=== PATIENT | female | born 1965 | race Caucasian/White ===

== ENCOUNTER 2017-02-09 06:42 | Inpatient (IN) | payer BC ==
[2017-01-24 14:56] VITALS: BMI 37.0
--- NOTE | 2017-01-24 15:25 | PAT Medication Instructions ---
Service Date Jan 24, 2017. Current Home Medication List Amitriptyline Hcl (Elavil), 50 MG PO QPM Ascorbic Acid (Vitamin C), 1,000 MG PO QAM Atorvastatin (Lipitor), 40 MG PO QPM Cyanocobalamin (Vitamin B12 500MCG), 2,500 MCG PO QAM Fexofenadine Hcl (Laly Allergy), 1 TAB PO QAM Flaxseed (Linseed) (Flaxseed Oil), 2,000 MG PO QAM Fluticasone Propionate (Nasal) (Flonase Allergy Relief), 2 SPRAYS GUILLAUME BID Losartan Potassium (Cozaar), 50 MG PO QAM Multivitamin (Multivitamin), 1 TAB PO QAM Ranitidine HCl (Ranitidine [address]), 150 MG PO BID Sennosides-Docusate Sodium (Stool Softener), 2 TAB PO QAM Tramadol (Ultram), 50 MG PO Q4H PRN for Pain [Clearalax], 1 DOSE PO QAM Medication Instructions For Your Scheduled Surgery - Hold the following medications 2 weeks prior to surgery: Flaxseed (Linseed) (Flaxseed Oil), 2,000 MG PO QAM - Hold the following medications the morning of surgery: Sennosides-Docusate Sodium (Stool Softener), 2 TAB PO QAM Multivitamin (Multivitamin), 1 TAB PO QAM Ranitidine HCl (Ranitidine [address]), 150 MG PO BID Losartan Potassium (Cozaar), 50 MG PO QAM Fexofenadine Hcl (Laly Allergy), 1 TAB PO QAM Cyanocobalamin (Vitamin B12 500MCG), 2,500 MCG PO QAM Ascorbic Acid (Vitamin C), 1,000 MG PO QAM [Clearalax], 1 DOSE PO QAM - Take the following medications the morning of surgery with a sip of water: Fluticasone Propionate (Nasal) (Flonase Allergy Relief), 2 SPRAYS GUILLAUME BID Tramadol (Ultram), 50 MG PO Q4H PRN for Pain (okay to take up to 4 hours prior to surgery if needed) - Take the following medications as scheduled the night before surgery: Ranitidine HCl (Ranitidine [address]), 150 MG PO BID Fluticasone Propionate (Nasal) (Flonase Allergy Relief), 2 SPRAYS GUILLAUME BID Atorvastatin (Lipitor), 40 MG PO QPM Amitriptyline Hcl (Elavil), 50 MG PO QPM Tramadol (Ultram), 50 MG PO Q4H PRN for Pain If you have any questions please call us at [phone] (Chetna Agarwal PA-C) or [phone] or [phone]
[2017-01-24 16:08] LABS: URINE APPEARANCE CLEAR (CLEAR); URINE BILIRUBIN NEG (NEG); URINE COLOR YELLOW; URINE NITRITE NEG (NEG); URINE SPECIFIC GRAVITY 1.007 (1.000-1.030); UROBILINOGEN NEG (NEG)
[2017-01-24 16:08] LABS: BASO % 0.4 %; BASO ABS # 0.03 K/uL (0-0.2); COMPLETE YES; EOS % 3.9 %; HEMATOCRIT 39.4 % (37-47); IG% 0.2 %; LYMPH % 28.5 %; LYMPH ABS # 2.42 K/uL (1.2-3.4); MEAN CELL VOLUME 90.4 fL (80-100); MEAN CORPUSCULAR HEMOGLOBIN 30.5 pg (25-34); MEAN CORPUSCULAR HGB CONC 33.8 g/dl (32-36); MEAN PLATELET VOLUME 9.7 fL (7.4-10.4); MONO % 10.3 %; NEUT % 56.7 %; PLATELET COUNT 360 K/uL (130-400); RED BLOOD COUNT 4.36 M/uL (4.2-5.4); WHITE BLOOD COUNT 8.48 K/uL (4.8-10.8)
[2017-01-24 16:11] LABS: MANUAL MICROSCOPIC REQUIRED? NO; REVIEW REQ? NO
--- NOTE | 2017-01-24 16:12 | DIAGNOSTIC IMAGING REPORT ---
CHEST 2 VIEWS ROUTINE CLINICAL HISTORY: PAT preoperative evaluation COMPARISON STUDY: No previous studies for comparison. FINDINGS: The bones soft tissues and hemidiaphragms are normal. The cardiomediastinal silhouette is normal. The lungs are clear. The pulmonary vasculature is normal. IMPRESSION: Negative chest. Electronically signed by: Juaquin Zepeda M.D. 01/24/2017 4:10 PM Dictated Date/Time: 01/24/2017 4:10 PM
[2017-01-24 16:16] LABS: PROTHROMBIN TIME (PATIENT) 10.7 SECONDS (9.0-12.0)
[2017-01-24 16:40] LABS: BUN/CREATININE RATIO 13.2 (10-20); CALCIUM 9.7 mg/dl (8.5-10.1); CREATININE 0.95 mg/dl (0.60-1.20); POTASSIUM 4.3 mmol/L (3.5-5.1)
[2017-01-25 07:31] LABS: ESTIMATED AVERAGE GLUCOSE 117 mg/dl; HA1C FLAG Normal (Normal)
--- NOTE | 2017-02-08 15:06 | HISTORY & PHYSICAL EXAMINATION ---
DATE OF ADMISSION: 02/09/2017 CHIEF COMPLAINT: Right knee pain. HISTORY OF PRESENT ILLNESS: The patient is a 51-year-old female with a known arthritic changes about her medial compartment and patellofemoral compartment noted on MRI and arthroscopy. Despite fairly normal looking x-rays, she continues to have a significant amount of pain and disability with activities of daily living. She has had conservative care including corticosteroid and viscosupplementation injections. She continues to have ongoing pain and disability and now desires to proceed with right total knee arthroplasty. PAST MEDICAL HISTORY: Chronic back pain, fibromyalgia, irritable bowel syndrome, hyperlipidemia, sleep apnea, esophageal reflux, hypertension. PAST SURGICAL HISTORY: D\T\C, right knee arthroscopy x2, tubal ligation. MEDICATIONS: Lipitor 40 mg daily, Cozaar 50 mg daily, Flonase 2 sprays each nostril daily, Zantac 150 mg 2 times daily, Elavil 25 mg at bedtime, Laly 180 mg daily, calcium 600 mg daily, multivitamin daily, vitamin C 1000 mg daily. ALLERGIES: No known drug allergies. SOCIAL HISTORY AND REVIEW OF SYSTEMS: Noncontributory. PHYSICAL EXAMINATION: GENERAL: Well-nourished, well-developed female who appears her stated age. HEENT: Normocephalic, atraumatic, extraocular movements intact, oropharynx pink and moist. NECK: Supple without adenopathy. LUNGS: Clear to auscultation bilaterally. HEART: Regular rate and rhythm. ABDOMEN: Soft, nontender, nondistended, obese. EXTREMITIES: The upper extremity within normal limits. The right knee is neutrally aligned. She has mild crepitus with range of motion. Her range of motion is from 0-125 degrees. X-RAYS: X-rays were reviewed. She has mild degenerative changes about the medial compartment on plain film, although there has been advanced changes noted on arthroscopy about the medial and patellofemoral compartments. ASSESSMENT: Right knee degenerative joint disease. PLAN: Risks versus benefits were discussed. Consent was obtained. The patient's primary care physician is Odette Mooney PA-C at [facility]. We will proceed with right total knee arthroplasty upon preoperative workup and medical clearance.
[~2017-02-09] VITALS: Ht 167.6 cm; Wt 104.0 kg
[2017-02-09] VITALS (9 sets, daily range): BP systolic 106–133; BP diastolic 72–83; PULSE 75–98; TEMP 36.5–36.7; O2SAT 96–100; Ht 167.6 cm; Wt 104.0 kg
[~2017-02-09 06:42] MED LIST: ACETAMINOPHEN 500 MG TAB PO SCH; AMT50 PO; ASCA500 PO; ATOR-24 PO; BUPIVACAINE 0.25% 30 ML VIAL ONE; BUPIVACAINE 0.5 % 5 MG/1 ML PF 10ML VIAL ONE; CEFAZOLIN 2000 MG/60 ML D5W 60 ML IV SCH; CYAN500T13 PO; CeleBREX 200 MG CAP PO SCH; DEXAMETHASONE 4 MG TAB PO SCH; FAMOTIDINE 20 MG TAB PO SCH; FEXO1TAB49 PO; FLAX100024 PO; FLUT0.15 NAE; GABAPENTIN 300 MG CAP PO SCH; LACTATED RINGER'S 1000ML 1,000 ML IV SCH; LACTATED RINGER'S 1000ML 500 ML IV ONE; LACTATED RINGER'S 1000ML IV SCH; LOSA50TA6 PO; MULT-506 PO; RANI1TAB77 PO; ROPIVACAINE 5MG/ML 30 ML 150 MG, BUPIVACAINE/EPINEPHR 0.5% MPF 30 ML, KETOROLAC TROMETH... INFIL SCH; SENNTAB23 PO; TRAM-10 PO; [UNRECOGNIZED DRUG - OTHER] PO
[2017-02-09] MEDS ORDERED: FENTANYL CITRATE INJ 50 MCG/1 ML 2 ML VIAL IV PRN (07:00)
[2017-02-09] MEDS ORDERED: ONDANSETRON INJ 2 MG/ML 2 ML VIAL IV PRN ×2 (07:00→11:00)
[2017-02-09] MEDS ORDERED: LABETALOL HCL IV 5 MG/ML 20ML IV PRN (07:00)
[2017-02-09] MEDS ORDERED: EpHEDrine SULFATE INJ 50 MG/ML AMP IV PRN (07:00)
[2017-02-09] MEDS ORDERED: ATROPINE SULFATE 0.1 MG/ML 5ML SYR IV PRN (07:00)
--- NOTE | 2017-02-09 07:55 | History & Physical Bridge Note ---
H&P Re-Evaluation Bridge Note: I have examined the patient, reviewed the History & Physical and in the interval since the performance of the History & Physical I have noted the following changes of clinical significance: No changes noted
[2017-02-09] MEDS ORDERED: MIDAZOLAM HCL 1 MG/ML 2ML VIAL ONE ×3 (07:58→09:31)
[2017-02-09] MEDS ORDERED: PROPOFOL IV EMULSION 10 MG/ML 20 ML VIAL IV ONE (07:58)
[2017-02-09] MEDS ORDERED: ONDANSETRON INJ 2 MG/ML 2 ML VIAL ONE (07:58)
[2017-02-09] MEDS ORDERED: LIDOCAINE HCL 2% 2 ML VIAL (20MG/ML) ONE (07:58)
[2017-02-09] MEDS ORDERED: DEXAMETHASONE SOD INJ 4 MG/ML VIAL ONE (07:58)
[2017-02-09] MEDS ORDERED: FENTANYL CITRATE INJ 50 MCG/1 ML 2 ML VIAL ONE (07:59)
[2017-02-09] MEDS ORDERED: BACITRACIN 50000 UNIT VIAL ONE (08:35)
[2017-02-09] MEDS ORDERED: ORTHO JOINT ANESTHETIC ONE (08:35)
[2017-02-09] MEDS ORDERED: POVIDONE-IODINE OP SOLN 30 ML BTL ONE (08:35)
[2017-02-09] MEDS: TRANEXAMIC ACID INJ 1,000 MG in SODIUM CHLORIDE 0.9% 100ML 100 ML IV SCH ×2 (09:01→12:39)
--- NOTE | 2017-02-09 10:21 | [facility] Post Operative Brief Note ---
Immediate Operative Summary Operative Date Feb 09, 2017. Pre-Operative Diagnosis Right Knee Degenerative Joint Disease Post-Operative Diagnosis Right Knee Degenerative Joint Disease Procedure(s) Performed Right Total Knee Arthroplasty, Cemented Surgeon Dr. Abel Store Associate Surgeon(s) Rip Tompkins PA-C Estimated Blood Loss 20 mL Findings OA Specimens A: Right Knee Bone and Tissue Disposition Recovery Room / PACU
--- NOTE | 2017-02-09 10:43 | OPERATIVE REPORT ---
DATE OF OPERATION: 02/09/2017 PREOPERATIVE DIAGNOSIS: Osteoarthritis, right knee. POSTOPERATIVE DIAGNOSIS: Osteoarthritis, right knee. PROCEDURE: Right total knee arthroplasty. SURGEON: Dr. Abel. BARTENDERS: Rip Tompkins PA-C. ANESTHESIA: Spinal. COMPLICATIONS: None. OPERATION AND FINDINGS: Following induction of spinal anesthesia, the patient's right leg was prepped and draped in the usual sterile manner. Limb was exsanguinated with an Esmarch bandage and tourniquet was inflated to 350 mmHg. A longitudinal incision was made anteriorly. Subcutaneous tissue was sharply dissected. Electrocautery was used for hemostasis. Prepatellar bursa was incised and median parapatellar incision was performed. Patella was everted and the knee was flexed. Fat pad was removed to aid in visualization and the anterior and posterior cruciate ligaments were removed. The medial face of the tibia was cleared of soft tissue first with a Bovie and a Benavides elevator. This tissue was retracted posteriorly using a blunt Hohmann. A Dickey retractor was used to expose the synovium above on the anterior aspect of the femur and this was removed down to bone. The PSI guide was placed on the distal femur and two pins were placed anteriorly and kept in position and two additional pins were placed distally and removed. The distal femoral cutting block was placed in position and the distal femoral cut was used in the +0 setting. Next, the cutting block was removed and the 3 block was placed in the distal end of the femur. Care was taken to ensure appropriate external rotation and feeler gauge was used to ensure no notching would occur. The femoral block was centered on the distal femur and in the medial and lateral direction and was fixed using two bone screws. The gold pins were then removed. The oscillating saw was used to create the bone cuts and the distal femoral cutting block was removed and the reciprocating saw was used to further trim the femoral cuts as well as a deep in the area for the trochlear groove. Next, posterior condyle remnants were removed. Following this, a meniscal clamp and knife were utilized to remove the anterior portion of both medial and lateral meniscus. The proximal tibia PSI guide was placed into position and the proximal tibial cutting guide was screwed into position. The extra medullary alignment guide was utilized to ensure appropriate alignment. The proximal tibia was cut and the proximal tibial cutting block was removed and this bone fragment was removed. The appropriate guide was used to perform the notch cut on the distal femur and a lamina owner consulting engineer and a cochlear knife were utilized to finish both medial and lateral meniscectomies to remove any remnants of the posterior or anterior cruciate ligaments. Following this, the distal femoral component was impacted into position and blunt Christopher was used to sublux the tibia anteriorly. The proximal tibia was sized and a 3 tibial tray was chosen as the size to be used. This was put into position and appropriate external rotation and a double check with extramedullary alignment guide was performed. The canal for the tibial stem was prepared first with a 17 mm drill and then the punch and a mallet and the trial tibial poly was placed. A 16 was chosen the size to be used. It was brought to extension and the patella was prepared with the patellar reamer. A 33 component was chosen the size to be used. The trial component was placed and knee was taken through a full range of motion and there was found to be no lateral subluxation of the tibia. No lateral release was required. The trials were all removed. The final components were obtained and assembled. Cement was mixed. The knee was thoroughly irrigated and the ortho mix was injected about the knee joint. The final components were cemented into position. After thoroughly suctioning and drying the bone ends, all excess cement was removed. The knee was held in extension while the cement hardened. The wound was irrigated and closed over a Hemovac drain. #1 Vicryl was used to close the extensor mechanism. Subcutaneous tissues closed using 0 Dexon. Skin was closed with logan. Sterile dressing of Adaptic, 4 x 4's, sterile Webril, and Konrad was applied. The patient tolerated the procedure well, recovery room stable. Due to the complex nature of the procedure, the entire surgery was performed with the operational assistance of Rip Tompkins PA-C. The greenhouse assistant, under direct supervision, was involved in the actual performance of all aspects of the surgical procedure including hemostasis, tissue retraction and incision, instrument management, patient positioning, and wound closure. I attest to the content of the Intraoperative Record and any orders documented therein. Any exceptio ns are noted below.
[2017-02-09] MEDS ORDERED: ZOLPIDEM TARTRATE 5 MG TAB PO PRN (11:00)
[2017-02-09] MEDS ORDERED: METOCLOPRAMIDE HCL INJ 5 MG/ML 2 ML VIAL IV PRN (11:00)
[2017-02-09] MEDS ORDERED: MoRPHine SULFATE 2 MG/ML CARP IV PRN (11:00)
[2017-02-09] MEDS ORDERED: MAGNESIUM HYDROXIDE SUSP 30 ML UDC PO PRN (11:00)
[2017-02-09] MEDS ORDERED: ALUMINUM/MAGNESIUM/SIMETH (MAALOX MAX) 30 ML UDC PO PRN (11:00)
--- NOTE | 2017-02-09 11:21 | DIAGNOSTIC IMAGING REPORT ---
TWO VIEWS RIGHT KNEE CLINICAL HISTORY: Postoperative examination. FINDINGS: AP and crosstable lateral portable views of the right knee are obtained. A right knee arthroplasty is in near anatomic alignment. There has been undersurface remodeling of the patella. No acute fracture is seen. There are expected postoperative changes around the knee including skin clips, a surgical drain, soft tissue edema, and subcutaneous gas. IMPRESSION: Expected postoperative changes status post right knee arthroplasty. No acute fracture is seen. Electronically signed by: Danet Martínez M.D. 02/09/2017 11:19 AM Dictated Date/Time: 02/09/2017 11:19 AM
--- NOTE | 2017-02-09 11:24 | Anesthesiology Progress Note ---
Anesthesia Post Op Note Date & Time Feb 09, 2017 at 11:23 Vital Signs Pain Intensity: 0 Vital Signs Past 12 Hours Date Time Temp Pulse Resp B/P Pulse Ox O2 Delivery O2 Flow Rate FiO2 02/09/17 11:15 115/73 02/09/17 11:14 88 14 02/09/17 11:14 89 14 100 02/09/17 11:10 121/77 02/09/17 11:09 92 19 02/09/17 11:09 92 19 99 02/09/17 11:08 98 17 02/09/17 11:08 98 17 100 02/09/17 11:05 103/78 02/09/17 11:03 94 16 100 02/09/17 11:03 94 16 02/09/17 11:00 118/74 02/09/17 10:58 90 13 100 02/09/17 10:58 90 13 02/09/17 10:55 112/72 02/09/17 10:53 95 12 02/09/17 10:53 95 12 100 02/09/17 10:50 107/63 02/09/17 10:48 95 15 104/63 96 02/09/17 10:48 96 15 02/09/17 10:48 36.6 98 16 104/63 97 Nasal Cannula 2 02/09/17 07:13 36.6 90 20 133/83 99 Room Air Notes Mental Status: alert / awake / arousable, participated in evaluation Pt Amnestic to Procedure: Yes Nausea / Vomiting: adequately controlled Pain: adequately controlled Airway Patency, RR, SpO2: stable & adequate BP & HR: stable & adequate Hydration State: stable & adequate Neuraxial Anesthesia: was administered, sensory block is resolving Anesthetic Complications: no major complications apparent
[2017-02-09] MEDS ORDERED: MoRPHine SULFATE 4 MG/ML 1 ML CARP\\VIAL IV PRN (11:45)
[2017-02-09] MEDS ORDERED: MoRPHine SULFATE 10 MG/ML CARP/VIAL IV PRN (11:45)
[2017-02-09] MEDS: FERROUS GLUCONATE 324 MG TAB PO SCH ×2 (12:30→18:58)
[2017-02-09] MEDS: D5W AND 1/2NSS + 20MEQ KCL 1,000 ML IV SCH ×2 (13:08→22:44)
[2017-02-09] MEDS: ACETAMINOPHEN 500 MG TAB PO SCH ×2 (13:08→22:44)
[2017-02-09] MEDS: KETOROLAC TROMETHAMINE 30 MG/ML VIAL IV. SCH ×2 (13:09→21:13)
[2017-02-09] MEDS: CEFAZOLIN IV 2,000 MG in DEXTROSE 5% 50ML 50 ML IV SCH ×2 (15:49→23:50)
[2017-02-09] MEDS: OXYCODONE HCL IR 5 MG TAB (IMMEDIATE RELEASE) PO PRN ×2 (15:50→21:12)
[2017-02-09] MEDS: FLUTICASONE PROPIONATE NA SPR 16 GM BTL NAE SCH (21:12)
[2017-02-09] MEDS: DOCUSATE SODIUM 100 MG CAP PO SCH (21:13)
[2017-02-09] MEDS: AMITRIPTYLINE HCL 50 MG TAB PO SCH (21:14)
[2017-02-09] MEDS: ASPIRIN 81 MG ECTAB PO SCH (21:14)
[2017-02-09] MEDS: ATORVASTATIN 40 MG TAB PO SCH (21:14)
[2017-02-09] MEDS: OXYCODONE HCL 10 MG TABCR (OXYCONTIN) PO SCH (21:19)
[2017-02-10] MEDS: KETOROLAC TROMETHAMINE 30 MG/ML VIAL IV. SCH ×2 (01:40→06:58)
[2017-02-10] MEDS: ACETAMINOPHEN 500 MG TAB PO SCH ×3 (05:46→21:34)
[2017-02-10 06:39] LABS: HEMATOCRIT 34.1 % (37-47); MEAN CELL VOLUME 91.9 fL (80-100); MEAN CORPUSCULAR HEMOGLOBIN 29.4 pg (25-34); MEAN PLATELET VOLUME 9.2 fL (7.4-10.4); PLATELET COUNT 314 K/uL (130-400); RED BLOOD COUNT 3.71 M/uL (4.2-5.4); WHITE BLOOD COUNT 19.32 K/uL (4.8-10.8)
[2017-02-10 06:49] VITALS: BP 101/64; PULSE 69; TEMP 36.4; O2SAT 99
[2017-02-10 07:12] LABS: BUN/CREATININE RATIO 16.5 (10-20); CALCIUM 8.5 mg/dl (8.5-10.1); CREATININE 1.1 mg/dl (0.60-1.20); POTASSIUM 4.5 mmol/L (3.5-5.1)
[2017-02-10] MEDS ORDERED: DEXAMETHASONE INJ 10 MG in SYRINGE 0 ML IV SCH (07:30)
--- NOTE | 2017-02-10 07:41 | Orthopedic Progress Note ---
Orthopedic Progress Note Date of Service Feb 10, 2017. Subjective Post OP Day: 1 Reports: feeling well Objective N/V intact, dressing C/D/I (Hemovac in place), toes mobile Date Time Temp Pulse Resp B/P Pulse Ox O2 Delivery O2 Flow Rate FiO2 02/10/17 07:05 Room Air 02/10/17 06:49 36.4 69 16 101/64 99 Room Air 02/09/17 23:50 CPAP 02/09/17 23:10 36.5 75 16 106/73 96 CPAP 02/09/17 19:23 36.5 85 18 115/76 100 Room Air 02/09/17 15:26 36.7 87 18 120/77 98 Room Air 02/09/17 14:21 83 16 107/72 100 Nasal Cannula 2.0 02/09/17 14:15 Room Air 02/09/17 13:15 36.7 98 16 117/78 100 2.0 02/09/17 12:45 86 16 118/82 96 2.0 02/09/17 12:16 98 Nasal Cannula 2.0 02/09/17 12:15 98 Nasal Cannula 2.0 02/09/17 12:13 36.7 95 17 123/81 98 Nasal Cannula 2.0 02/09/17 12:02 90 14 02/09/17 12:02 90 14 99 02/09/17 12:00 88 16 111/76 99 Nasal Cannula 2 02/09/17 12:00 111/76 02/09/17 11:57 93 16 99 02/09/17 11:57 92 16 02/09/17 11:52 87 13 02/09/17 11:52 83 13 100 02/09/17 11:47 89 16 02/09/17 11:47 88 16 99 02/09/17 11:45 110/72 02/09/17 11:45 95 17 110/72 100 Nasal Cannula 2 02/09/17 11:42 88 13 100 02/09/17 11:42 89 13 02/09/17 11:40 106/73 02/09/17 11:37 88 17 02/09/17 11:37 87 17 100 02/09/17 11:36 90 16 02/09/17 11:36 92 16 100 02/09/17 11:35 116/75 02/09/17 11:31 89 16 100 02/09/17 11:31 91 16 02/09/17 11:30 114/74 02/09/17 11:26 92 13 02/09/17 11:26 90 13 100 02/09/17 11:25 120/77 02/09/17 11:21 92 13 02/09/17 11:21 91 13 100 02/09/17 11:20 112/70 02/09/17 11:20 36.9 02/09/17 11:16 92 17 100 02/09/17 11:16 92 17 02/09/17 11:15 115/73 02/09/17 11:14 88 14 02/09/17 11:14 89 14 100 02/09/17 11:10 121/77 02/09/17 11:09 92 19 02/09/17 11:09 92 19 99 02/09/17 11:08 98 17 02/09/17 11:08 98 17 100 02/09/17 11:05 103/78 02/09/17 11:03 94 16 100 02/09/17 11:03 94 16 02/09/17 11:00 118/74 02/09/17 10:58 90 13 100 02/09/17 10:58 90 13 02/09/17 10:55 112/72 02/09/17 10:53 95 12 02/09/17 10:53 95 12 100 02/09/17 10:50 107/63 02/09/17 10:48 95 15 104/63 96 02/09/17 10:48 96 15 02/09/17 10:48 36.6 98 16 104/63 97 Nasal Cannula 2 Laboratory Results 24 Hours: Test 02/10/17 06:17 Hematocrit 34.1 % Hemoglobin 10.9 g/dL Assessment & Plan Assessment: 51 yo female stable POD #1 s/p right TKA Plan: 1. Med management 2. DVT prophylaxis- ASA, TEDs, SCDs 3. PT/OT 4. D/C planning- home w/ HH
--- NOTE | 2017-02-10 08:07 | Anesthesiology Progress Note ---
Anesthesia Post Op Note Date & Time Feb 10, 2017 at 08:06 Vital Signs Pain Intensity: 2.0 Vital Signs Past 12 Hours Date Time Temp Pulse Resp B/P Pulse Ox O2 Delivery O2 Flow Rate FiO2 02/10/17 07:05 Room Air 02/10/17 06:49 36.4 69 16 101/64 99 Room Air 02/09/17 23:50 CPAP 02/09/17 23:10 36.5 75 16 106/73 96 CPAP Notes Mental Status: alert / awake / arousable, participated in evaluation Pt Amnestic to Procedure: Yes Nausea / Vomiting: adequately controlled Pain: adequately controlled Airway Patency, RR, SpO2: stable & adequate BP & HR: stable & adequate Hydration State: stable & adequate Neuraxial Anesthesia: sensory block resolved Anesthetic Complications: no major complications apparent
[2017-02-10] MEDS: FERROUS GLUCONATE 324 MG TAB PO SCH ×3 (08:13→18:50)
[2017-02-10] MEDS: LOSARTAN POTASSIUM 50 MG TAB PO SCH (08:13)
[2017-02-10] MEDS: DOCUSATE SODIUM 100 MG CAP PO SCH ×2 (08:13→21:00)
[2017-02-10] MEDS: ASPIRIN 81 MG ECTAB PO SCH ×2 (08:13→20:59)
[2017-02-10] MEDS: CYANOCOBALAMIN 500 MCG TAB (VIT B-12) PO SCH (08:13)
[2017-02-10] MEDS: ASCORBIC ACID 500 MG TAB PO SCH (08:14)
[2017-02-10] MEDS: PANTOprazole SOD 40 MG TAB PO SCH (08:14)
[2017-02-10] MEDS: MULTIVITAMIN TAB PO SCH (08:14)
[2017-02-10] MEDS: OXYCODONE HCL 10 MG TABCR (OXYCONTIN) PO SCH ×2 (08:14→21:04)
[2017-02-10] MEDS: FLUTICASONE PROPIONATE NA SPR 16 GM BTL NAE SCH ×2 (08:14→20:59)
[2017-02-10] MEDS: OXYCODONE HCL IR 5 MG TAB (IMMEDIATE RELEASE) PO PRN ×3 (08:15→18:51)
[2017-02-10 10:01] VITALS: BP 132/77; PULSE 81; O2SAT 98
[2017-02-10 12:42] VITALS: BP 117/81; PULSE 71; TEMP 36.4; O2SAT 100
[2017-02-10 15:42] VITALS: BP 107/67; PULSE 81; TEMP 36.4; O2SAT 99
--- NOTE | 2017-02-10 15:47 | Discharge Instructions ---
Discharge Instructions Date of Service Feb 10, 2017. Admission Reason for Admission: Right Knee Osteoarthritis Discharge Discharge Diagnosis / Problem: Right knee arthritis Discharge Goals Goal(s): Decrease discomfort, Improve function Activity Recommendations Activity Limitations: as noted below Weightbearing Status: Right weightbearing (as tolerated) . Current Hospital Diet Patient's current hospital diet: Regular Diet Discharge Diet Recommended Diet: Regular Diet Procedures Procedures Performed: Right Total Knee Arthroplasty, Cemented Pending Studies Studies pending at discharge: no Laboratory Results Hemoglobin A1c Test 01/24/17 15:36 Range/Units Estimated Average Glucose 117 mg/dl Hemoglobin A1c 5.7 H 4.5-5.6 % Medical Emergencies . Who to Call and When: Medical Emergencies: If at any time you feel your situation is an emergency, please call 911 immediately. . Non-Emergent Contact Non-Emergency issues call your: Surgeon Call Non-Emergent contact if: temperature is above 101.5, your pain is not controlled, wound has increased drainage, wound has increased redness . "Provider Documentation" section prepared by Rip Tompkins PA-C. . VTE Core Measure Inpt VTE Proph given/why not?: Other Anticoagulation (ASA 81mg bid), T.E.D. Stockings, SCD's [place] Drug Monitoring Program Search Results: patient reviewed within database, no issues identified
[2017-02-10] MEDS: AMITRIPTYLINE HCL 50 MG TAB PO SCH (20:59)
[2017-02-10] MEDS: ATORVASTATIN 40 MG TAB PO SCH (21:00)
[2017-02-10] MEDS: CeleBREX 200 MG CAP PO SCH (21:01)
[2017-02-10 23:01] VITALS: BP 110/69; PULSE 81; TEMP 36.6; O2SAT 98
[2017-02-11] MEDS: OXYCODONE HCL IR 5 MG TAB (IMMEDIATE RELEASE) PO PRN ×2 (00:44→09:52)
[2017-02-11] MEDS: ACETAMINOPHEN 500 MG TAB PO SCH (05:44)
[2017-02-11 07:50] VITALS: BP 131/81; PULSE 70; TEMP 36.4; O2SAT 100
--- NOTE | 2017-02-11 07:57 | Orthopedic Progress Note ---
Orthopedic Progress Note Date of Service Feb 11, 2017. Subjective Post OP Day: 2 Reports: feeling well Objective N/V intact, dressing C/D/I, toes mobile Date Time Temp Pulse Resp B/P Pulse Ox O2 Delivery O2 Flow Rate FiO2 02/11/17 07:50 36.4 70 17 131/81 100 Room Air 02/11/17 00:30 Room Air 02/10/17 23:01 36.6 81 16 110/69 98 CPAP 02/10/17 15:45 Room Air 02/10/17 15:42 36.4 81 18 107/67 99 Room Air 02/10/17 12:42 36.4 71 18 117/81 100 Room Air 02/10/17 10:01 81 98 Assessment & Plan Assessment: 51 yo female stable POD #2 s/p right TKA Plan: 1. Med management 2. DVT prophylaxis- ASA, TEDs, SCDs 3. PT/OT 4. D/C planning- home w/ HH
[2017-02-11] MEDS ORDERED: RXC5 PO (07:59)
[2017-02-11] MEDS ORDERED: ASPEC81 PO (07:59)
[2017-02-11] MEDS ORDERED: ACET-1138 PO (07:59)
[2017-02-11] MEDS ORDERED: OXYSR10 PO (07:59)
[2017-02-11] MEDS ORDERED: CLB200 PO (07:59)
[2017-02-11] MEDS: FERROUS GLUCONATE 324 MG TAB PO SCH (08:37)
[2017-02-11] MEDS: ASPIRIN 81 MG ECTAB PO SCH (08:38)
[2017-02-11] MEDS: DOCUSATE SODIUM 100 MG CAP PO SCH (08:38)
[2017-02-11] MEDS: FLUTICASONE PROPIONATE NA SPR 16 GM BTL NAE SCH (08:38)
[2017-02-11] MEDS: CeleBREX 200 MG CAP PO SCH (08:38)
[2017-02-11] MEDS: LOSARTAN POTASSIUM 50 MG TAB PO SCH (08:38)
[2017-02-11] MEDS: MULTIVITAMIN TAB PO SCH (08:38)
[2017-02-11] MEDS: PANTOprazole SOD 40 MG TAB PO SCH (08:39)
[2017-02-11] MEDS: ASCORBIC ACID 500 MG TAB PO SCH (08:39)
[2017-02-11] MEDS: CYANOCOBALAMIN 500 MCG TAB (VIT B-12) PO SCH (08:39)
[2017-02-11] MEDS: OXYCODONE HCL 10 MG TABCR (OXYCONTIN) PO SCH (08:40)
[2017-02-11 09:02] VITALS: BP 131/81; PULSE 70; TEMP 36.4; O2SAT 100
[2017-02-11 09:17] VITALS: BP 126/72; PULSE 82; O2SAT 99
--- NOTE | 2017-02-22 15:52 | DISCHARGE SUMMARY ---
CHIEF COMPLAINT: Right knee pain. Please see complete history and physical examination. HOSPITAL COURSE: The patient underwent right total knee arthroplasty without complication. She tolerated the procedure well and was discharged to recovery room in stable condition. Her postoperative course was relatively uneventful. Her postoperative pain was reasonably well controlled with a combination of spinal anesthesia, adductor canal block, intraoperative joint injection, IV, and oral pain medications. She was started on aspirin for DVT prophylaxis. She also utilized SONY stockings and SCDs for additional prophylaxis. Her H\T\H was stable and did not require transfusion. Her surgical drain was discontinued by postoperative day 2, her surgical dressing will remain in place for approximately 7 days postoperative. She was discharged home on postoperative day 2. She will continue her physical therapy at home. She will continue her aspirin for DVT prophylaxis and follow up in our office in approximately 10-14 days for initial postop evaluation.
[2017-04-18] MEDS ORDERED: HYDR-5688 PO (14:54)
== END 2017-02-11 11:26 | disposition home health service (06) | DRG 470 ==
LOC: ENRESERVTM → ENRESERVDT → C.ACU 06:42 → C.3E 10:58
PROC: 0SRC0J9 Replacement of Right Knee Joint with Synthetic Substitute, Cemented, Open Approach (ICD-10-PCS; principal; 2017-02-09 09:15)
DX: M17.11 Unilateral primary osteoarthritis, right knee (principal); I12.9 Hypertensive chronic kidney disease with stage 1 through stage 4 chronic kidney disease, or unspecified chronic kidney disease; N18.3 Chronic kidney disease, stage 3 (moderate); E78.5 Hyperlipidemia, unspecified; K21.9 Gastro-esophageal reflux disease without esophagitis; M79.7 Fibromyalgia; G89.29 Other chronic pain; M54.9 Dorsalgia, unspecified; K58.9 Irritable bowel syndrome, unspecified; G47.30 Sleep apnea, unspecified; H91.92 Unspecified hearing loss, left ear; E66.9 Obesity, unspecified; Z68.37 Body mass index [BMI] 37.0-37.9, adult; Z99.89 Dependence on other enabling machines and devices; Z79.891 Long term (current) use of opiate analgesic; Z79.899 Other long term (current) drug therapy

== ENCOUNTER 2017-04-20 08:08 | Observation (INO) | payer BC ==
[2017-04-18 14:37] VITALS: BMI 37.0
--- NOTE | 2017-04-19 10:12 | History and Physical ---
History & Physical Date Apr 19, 2017. Chief Complaint Right knee pain s/p fall History of Present Illness The patient is a 51 year old female with complaints of Past Medical/Surgical History Medical Problems: (1) Arthritis of right knee Additional History Hepatic Disease: No Endocrine Disorder: No Kidney Disease: No Hypertension: Yes Heart Disease: No Bleeding Tendencies: No Infectious Diseases: No Other: Acid reflux, Hyperlipidemia Allergies Coded Allergies: No Known Allergies (Unverified , 04/18/17) Home Medications Scheduled Acetaminophen (Tylenol Extra Strength), 1,000 MG PO Q8H Amitriptyline Hcl (Elavil), 50 MG PO QPM Ascorbic Acid (Vitamin C), 1,000 MG PO QAM Atorvastatin (Lipitor), 40 MG PO QPM Cyanocobalamin (Vitamin B12 500MCG), 2,500 MCG PO QAM Fexofenadine Hcl (Laly Allergy), 1 TAB PO QAM Fluticasone Propionate (Nasal) (Flonase Allergy Relief), 2 SPRAYS GUILLAUME BID Losartan Potassium (Cozaar), 50 MG PO QAM Multivitamin (Multivitamin), 1 TAB PO QAM Ranitidine HCl (Ranitidine [address]), 150 MG PO BID Sennosides-Docusate Sodium (Stool Softener), 2 TAB PO QAM [Clearalax], 1 DOSE PO QAM Scheduled PRN Hydrocodone/Acetaminophen 5MG/325MG ([place] 5MG/325MG), 1 TABLET PO Q4 PRN for Pain Physical Examination Skin: warm/dry Eyes: normal inspection, EOMI ENT: normal ENT inspection Head: normocephalic, atraumatic Neck: supple, no adenopathy Respiratory/Chest: lungs clear, normal breath sounds Cardiovascular: regular rate, rhythm Abdomen / GI: normal bowel sounds Extremities: normal inspection (Right TKA incision weel healed, palpable defect quadriceps tendon) Neurologic/Psych: no motor/sensory deficits Diagnosis Quadriceps tendon rupture right knee 2 months s/p TKA Plan of Treatment Right quadriceps tendon repair
[~2017-04-20] VITALS: Ht 167.6 cm; Wt 104.5 kg
[2017-04-20] VITALS (8 sets, daily range): BP systolic 125–155; BP diastolic 79–97; PULSE 83–101; TEMP 36.5–36.7; O2SAT 96–100; Ht 167.6 cm; Wt 104.5 kg
[~2017-04-20 08:08] MED LIST changes: +ACET-1138 PO; -ACETAMINOPHEN 500 MG TAB PO SCH; -BUPIVACAINE 0.25% 30 ML VIAL ONE; -CEFAZOLIN 2000 MG/60 ML D5W 60 ML IV SCH; +CEFAZOLIN 2000 MG/60 ML D5W IV SCH; -CeleBREX 200 MG CAP PO SCH; -DEXAMETHASONE 4 MG TAB PO SCH; -FAMOTIDINE 20 MG TAB PO SCH; -FLAX100024 PO; -GABAPENTIN 300 MG CAP PO SCH; +HYDR-5688 PO; -LACTATED RINGER'S 1000ML 500 ML IV ONE; -LACTATED RINGER'S 1000ML IV SCH; -ROPIVACAINE 5MG/ML 30 ML 150 MG, BUPIVACAINE/EPINEPHR 0.5% MPF 30 ML, KETOROLAC TROMETH... INFIL SCH; -TRAM-10 PO
[2017-04-20] MEDS ORDERED: MIDAZOLAM HCL 1 MG/ML 2ML VIAL ONE ×2 (08:50)
[2017-04-20] MEDS ORDERED: FENTANYL CITRATE INJ 50 MCG/1 ML 2 ML VIAL ONE ×2 (08:50→11:20)
--- NOTE | 2017-04-20 11:26 | [facility] Operative Report ---
Operative Report Operative Date Apr 20, 2017. Pre-Operative Diagnosis quadriceps tendon rupture right knee 2 months status post right total knee arthroplasty Procedure(s) Performed Patient's right leg was prepped and draped in usual sterile manner limb was exsanguinated with an intervention insert was applied to 350 mmHg. Longitudinal cement and previously made incision. The incision was sharply dissected left posterior hemostasis. Quadriceps tendon was noted to be transversely ruptured the retinacular repair from a total knee had completely healed. Hematoma was evacuated from the knee and knee was thoroughly irrigated to evacuate all hematoma. Using a 2 pin passer the #5 FiberWire was placed through the patella and woven in of the deltoid fashion through the quadriceps tendon and was used to repair the tendon complete repair was carried out. #1 Vicryl [id number] sutures to close both medial and lateral retinacular ruptures. The subcutis excellent skin logan sterile dressing of Adaptic void for several and medial and lateral plaster slabs applied the patient tolerated the procedure well Mr. Gupta essential portions case including positioning prepping draping resident assistant cna wound closure and dressing and splint application. Surgeon Dr. Ramiro Abel Hoisting Machine Operator Surgeon(s) Reji Nesbitt PA-C Estimated Blood Loss 50ML Findings Quad tendon rupture Specimens none per surgeon Dr. Ramiro Abel I attest to the content of the Intraoperative Record and any orders documented therein. Any exceptions are noted below.
[2017-04-20] MEDS ORDERED: ONDANSETRON INJ 2 MG/ML 2 ML VIAL ONE (11:38)
[2017-04-20] MEDS ORDERED: PHENYLEPHRINE 100MCG/ML 5ML SYR ONE (11:38)
[2017-04-20] MEDS ORDERED: DEXAMETHASONE SOD INJ 4 MG/ML VIAL ONE (11:38)
[2017-04-20] MEDS ORDERED: PROPOFOL IV EMULSION 10 MG/ML 20 ML VIAL IV ONE (11:38)
[2017-04-20] MEDS ORDERED: LIDOCAINE HCL 2% 2 ML VIAL (20MG/ML) ONE (11:38)
[2017-04-20] MEDS ORDERED: HYDROmorphone INJ 2 MG/ML SYR/VIAL ONE (11:57)
[2017-04-20] MEDS ORDERED: KETOROLAC TROMETHAMINE 30 MG/ML VIAL ONE (11:57)
[2017-04-20] MEDS ORDERED: BISACODYL 10 MG SUPP PR PRN (12:00)
[2017-04-20] MEDS ORDERED: MAGNESIUM HYDROXIDE SUSP 30 ML UDC PO PRN (12:00)
[2017-04-20] MEDS ORDERED: ALUMINUM/MAGNESIUM/SIMETH (MAALOX MAX) 30 ML UDC PO PRN (12:00)
[2017-04-20] MEDS ORDERED: MoRPHine SULFATE 2 MG/ML CARP IV PRN (12:00)
[2017-04-20] MEDS ORDERED: KETOROLAC TROMETHAMINE 30 MG/ML VIAL IV. PRN (12:00)
[2017-04-20] MEDS ORDERED: HYDROmorphone INJ 2 MG/ML SYR/VIAL IV PRN (12:00)
[2017-04-20] MEDS ORDERED: LABETALOL HCL IV 5 MG/ML 20ML IV PRN (12:00)
[2017-04-20] MEDS ORDERED: ONDANSETRON INJ 2 MG/ML 2 ML VIAL IV PRN (12:00)
[2017-04-20] MEDS ORDERED: ATROPINE SULFATE 0.1 MG/ML 5ML SYR IV PRN (12:00)
[2017-04-20] MEDS ORDERED: IV FLUIDS COMPLETED PRN (12:30)
--- NOTE | 2017-04-20 12:43 | Anesthesiology Progress Note ---
Anesthesia Post Op Note Date & Time Apr 20, 2017 at 12:43 Vital Signs Pain Intensity: 3 Vital Signs Past 12 Hours Date Time Temp Pulse Resp B/P (MAP) Pulse Ox O2 Delivery O2 Flow Rate FiO2 04/20/17 12:29 36.9 04/20/17 12:27 100 17 04/20/17 12:27 67 17 96 04/20/17 12:26 135/96 04/20/17 12:22 72 16 96 04/20/17 12:22 99 16 04/20/17 12:21 138/90 04/20/17 12:17 104 16 04/20/17 12:17 103 16 100 04/20/17 12:16 136/88 04/20/17 12:12 99 18 100 04/20/17 12:12 100 18 04/20/17 12:11 135/95 04/20/17 12:07 100 16 100 04/20/17 12:07 101 16 04/20/17 12:06 142/93 04/20/17 12:02 101 13 04/20/17 12:02 101 13 100 04/20/17 12:01 150/95 04/20/17 11:57 100 20 04/20/17 11:57 100 20 100 04/20/17 11:56 140/93 04/20/17 11:52 104 18 04/20/17 11:52 104 18 98 04/20/17 11:50 138/91 04/20/17 11:47 36.8 101 16 138/91 99 Mask 10 04/20/17 08:42 36.5 94 20 143/95 (111) 99 Room Air Notes Mental Status: alert / awake / arousable, participated in evaluation Pt Amnestic to Procedure: Yes Nausea / Vomiting: adequately controlled Pain: adequately controlled Airway Patency, RR, SpO2: stable & adequate BP & HR: stable & adequate Hydration State: stable & adequate Anesthetic Complications: no major complications apparent
[2017-04-20] MEDS: D5W AND 1/2NSS + 20MEQ KCL 1,000 ML IV SCH ×2 (14:54→23:53)
[2017-04-20] MEDS: ACETAMINOPHEN 500 MG TAB PO SCH ×2 (15:32→23:51)
[2017-04-20] MEDS: CEFAZOLIN IV 2,000 MG in DEXTROSE 5% 50ML 50 ML IV SCH (17:47)
[2017-04-20] MEDS: OXYCODONE HCL IR 5 MG TAB (IMMEDIATE RELEASE) PO PRN ×2 (17:47→23:52)
[2017-04-20] MEDS ORDERED: AMITRIPTYLINE HCL 50 MG TAB PO SCH (21:00)
[2017-04-20] MEDS ORDERED: ATORVASTATIN 40 MG TAB PO SCH (21:00)
[2017-04-20] MEDS: ASPIRIN 81 MG ECTAB PO SCH (21:55)
[2017-04-20] MEDS: FLUTICASONE PROPIONATE NA SPR 16 GM BTL NAE SCH (21:55)
[2017-04-20] MEDS: RANITIDINE HCL 150 MG TAB PO SCH (21:55)
[2017-04-21] MEDS: CEFAZOLIN IV 2,000 MG in DEXTROSE 5% 50ML 50 ML IV SCH (02:22)
[2017-04-21 03:14] VITALS: BP 114/71; PULSE 85; TEMP 36.5; O2SAT 98
[2017-04-21 05:58] LABS: HEMATOCRIT 33.7 % (37-47); MEAN CELL VOLUME 91.8 fL (80-100); MEAN CORPUSCULAR HEMOGLOBIN 29.2 pg (25-34); MEAN CORPUSCULAR HGB CONC 31.8 g/dl (32-36); MEAN PLATELET VOLUME 9.3 fL (7.4-10.4); PLATELET COUNT 356 K/uL (130-400); RED BLOOD COUNT 3.67 M/uL (4.2-5.4); WHITE BLOOD COUNT 13.17 K/uL (4.8-10.8)
[2017-04-21] MEDS: OXYCODONE HCL IR 5 MG TAB (IMMEDIATE RELEASE) PO PRN ×2 (06:00→10:39)
[2017-04-21 06:29] LABS: BUN/CREATININE RATIO 15.6 (10-20); CALCIUM 9.3 mg/dl (8.5-10.1); CREATININE 0.95 mg/dl (0.60-1.20); POTASSIUM 4.2 mmol/L (3.5-5.1)
[2017-04-21 07:29] VITALS: BP 147/87; PULSE 75; TEMP 36.8; O2SAT 99
[2017-04-21] MEDS: ACETAMINOPHEN 500 MG TAB PO SCH (07:46)
--- NOTE | 2017-04-21 08:03 | Orthopedic Progress Note ---
Orthopedic Progress Note Date of Service Apr 21, 2017. Subjective Post OP Day: 1 Reports: feeling well Objective N/V intact, splint C/D/I, toes mobile Date Time Temp Pulse Resp B/P (MAP) Pulse Ox O2 Delivery O2 Flow Rate FiO2 04/21/17 07:29 36.8 75 19 147/87 (107) 99 Room Air 04/21/17 03:14 36.5 85 14 114/71 (85) 98 Nasal Cannula 1.5 04/21/17 00:00 Nasal Cannula 2.0 04/20/17 23:37 36.5 83 16 125/80 (95) 100 Nasal Cannula 1.5 04/20/17 19:18 36.5 83 16 128/79 (95) 96 Nasal Cannula 1.5 04/20/17 16:24 36.6 86 16 130/84 (99) 100 Nasal Cannula 2.0 04/20/17 16:00 Nasal Cannula 2.0 04/20/17 15:14 36.5 95 18 127/80 (96) 97 Nasal Cannula 2.0 04/20/17 14:13 97 16 138/82 (100) 100 Nasal Cannula 2.0 04/20/17 14:00 Nasal Cannula 2.0 04/20/17 13:40 97 16 155/97 (116) 97 Nasal Cannula 2.0 04/20/17 13:16 36.7 101 17 133/86 (102) 97 Nasal Cannula 2.0 04/20/17 13:16 100 Nasal Cannula 2.0 04/20/17 13:01 36.5 142/91 04/20/17 13:00 98 16 04/20/17 13:00 75 16 96 04/20/17 12:56 126/85 04/20/17 12:55 83 16 97 04/20/17 12:55 98 16 04/20/17 12:51 135/86 04/20/17 12:50 85 15 97 04/20/17 12:50 98 15 04/20/17 12:46 135/96 04/20/17 12:45 101 15 04/20/17 12:45 93 15 96 04/20/17 12:41 143/93 04/20/17 12:40 99 13 04/20/17 12:40 98 13 97 04/20/17 12:36 132/95 04/20/17 12:35 77 16 96 04/20/17 12:35 97 16 04/20/17 12:31 132/99 04/20/17 12:30 97 15 97 04/20/17 12:30 98 15 04/20/17 12:29 36.9 04/20/17 12:27 100 17 04/20/17 12:27 67 17 96 04/20/17 12:26 135/96 04/20/17 12:22 72 16 96 04/20/17 12:22 99 16 04/20/17 12:21 138/90 04/20/17 12:17 104 16 04/20/17 12:17 103 16 100 04/20/17 12:16 136/88 04/20/17 12:12 99 18 100 04/20/17 12:12 100 18 04/20/17 12:11 135/95 04/20/17 12:07 100 16 100 04/20/17 12:07 101 16 04/20/17 12:06 142/93 04/20/17 12:02 101 13 04/20/17 12:02 101 13 100 04/20/17 12:01 150/95 04/20/17 11:57 100 20 04/20/17 11:57 100 20 100 04/20/17 11:56 140/93 04/20/17 11:52 104 18 04/20/17 11:52 104 18 98 04/20/17 11:50 138/91 04/20/17 11:47 36.8 101 16 138/91 99 Mask 10 04/20/17 08:42 36.5 94 20 143/95 (111) 99 Room Air Laboratory Results 24 Hours: Test 04/21/17 05:17 Hematocrit 33.7 % Hemoglobin 10.7 g/dL Assessment & Plan Assessment: 51 yo female stable POD #1 s/p right quad tendon repair Plan: 1. Med management- 2. DVT prophylaxis- ASA, SCDs 3. PT/OT 4. D/C planning- home
[2017-04-21] MEDS ORDERED: ASPEC81 PO (08:04)
[2017-04-21] MEDS ORDERED: RXC5 PO (08:04)
--- NOTE | 2017-04-21 08:06 | Discharge Instructions ---
Discharge Instructions Date of Service Apr 21, 2017. Admission Reason for Admission: Strain of Right Quadriceps Muscle, Fascia & Tendon Discharge Discharge Diagnosis / Problem: Right quad tendon rupture Discharge Goals Goal(s): Decrease discomfort, Improve function Activity Recommendations Activity Limitations: as noted below Weightbearing Status: Right weightbearing (as tolerated) . Instructions / Follow-Up Instructions / Follow-Up Maintain splint until follow-up with MD. Weightbearing as tolerated. Frequent ice and elevation. Move foot/ankle frequently. Current Hospital Diet Patient's current hospital diet: Regular Diet Discharge Diet Recommended Diet: Regular Diet Procedures Procedures Performed: Right Knee Quadricep Tendon Repair Pending Studies Studies pending at discharge: no Laboratory Results Hemoglobin A1c Test 01/24/17 15:36 Range/Units Estimated Average Glucose 117 mg/dl Hemoglobin A1c 5.7 H 4.5-5.6 % Medical Emergencies . Who to Call and When: Medical Emergencies: If at any time you feel your situation is an emergency, please call 911 immediately. . Non-Emergent Contact Non-Emergency issues call your: Surgeon Call Non-Emergent contact if: temperature is above 101.5, your pain is not controlled, wound has increased drainage, wound has increased redness . "Provider Documentation" section prepared by Rip Tompkins PA-C. . VTE Core Measure Inpt VTE Proph given/why not?: Other Anticoagulation (ASA 81mg bid), T.E.D. Stockings, SCD's [place] Drug Monitoring Program Search Results: patient reviewed within database, no issues identified
[2017-04-21] MEDS ORDERED: DOCUSATE SODIUM/SENNA 50/8.6MG TAB PO SCH (09:00)
[2017-04-21] MEDS ORDERED: CYANOCOBALAMIN 500 MCG TAB (VIT B-12) PO SCH (09:00)
[2017-04-21] MEDS ORDERED: MULTIVITAMIN TAB PO SCH ×2 (09:00)
[2017-04-21] MEDS ORDERED: POLYETHYLENE (MIRALAX) 17 GM PACK PO SCH (09:00)
[2017-04-21] MEDS: ASPIRIN 81 MG ECTAB PO SCH (09:03)
[2017-04-21] MEDS: FLUTICASONE PROPIONATE NA SPR 16 GM BTL NAE SCH (09:03)
[2017-04-21] MEDS: RANITIDINE HCL 150 MG TAB PO SCH (09:05)
[2017-04-21 10:09] VITALS: BP 147/87; PULSE 75; TEMP 36.8; O2SAT 99
--- NOTE | 2017-04-22 11:50 | Discharge Summary ---
Orthopedic Discharge Summary Admission Date/Reason Apr 20, 2017 at 12:05 Strain of Right Quadriceps Muscle, Fascia & Tendon. Discharge Date/Disposition Apr 21, 2017 Home Diagnosis Principal Diagnosis: Right Quadriceps Tendon Rupture s/p R TKA Secondary Diagnoses/Problems: Htn, GERD, Hyperlipidemia Procedure(s) Performed Right Quadriceps Tendon Repair. Medication Reconciliation New Medications: Aspirin (Aspirin EC Low Dose) 81 Mg Ectab 81 MG PO BID for 30 Days Oxycodone HCl (Oxycodone HCl) 5 Mg Tab 5-10 MG PO Q4-6 PRN for Pain, #60 TAB Continued Medications: Acetaminophen (Tylenol Extra Strength) 500 Mg Tab 1000 MG PO Q8H for 30 Days, TAB Amitriptyline Hcl (Elavil) 50 Mg Tab 50 MG PO QPM, TAB Ascorbic Acid (Vitamin C) 500 Mg Tab 1000 MG PO QAM Atorvastatin (Lipitor) 40 Mg Tab 40 MG PO QPM, TAB Cyanocobalamin (Vitamin B12 500MCG) 500 Mcg Tab 2500 MCG PO QAM, TAB Fexofenadine Hcl (Laly Allergy) 180 Mg Tab 1 TAB PO QAM for 14 Days, #14 TAB 2 Refills Fluticasone Propionate (Nasal) (Flonase Allergy Relief) 50 Mcg/Act Spr 2 SPRAYS GUILLAUME BID Multivitamin (Multivitamin) Tab 1 TAB PO QAM, TAB Ranitidine HCl (Ranitidine [address]) 150 Mg Tab 150 MG PO BID Sennosides-Docusate Sodium (Stool Softener) 1 Tab Tab 2 TAB PO QAM [Clearalax] () 1 DOSE PO QAM Admission Physical Exam As per Admitting History & Physical. Hospital Course Patient was admitted on the above-noted date and have the above-noted surgery performed which she tolerated well. On her first postoperative day she was comfortable and remaining without complaints. Vital signs were stable and hemoglobin was 10.8. Dressings are clean dry and intact toes are mobile and she was started on physical therapy protocol and continued on DVT prophylaxis and pain management. She progressed well with her physical therapy and was otherwise remained stable and was felt that she be discharged to home. Discharge Instructions Please refer to the electronic Patient Visit Report (Discharge Instructions) for additional information.
== END 2017-04-21 11:25 | disposition home or self-care (01) ==
LOC: C.ACU 08:08 → C.3E 12:05 → ENRESERV 12:49
DX: M66.851 Spontaneous rupture of other tendons, right thigh (principal); Z96.651 Presence of right artificial knee joint; E78.5 Hyperlipidemia, unspecified; K21.9 Gastro-esophageal reflux disease without esophagitis; Z79.899 Other long term (current) drug therapy